=== PATIENT | male | born 1990 | race Caucasian/White ===

== ENCOUNTER 2020-07-18 12:46 | Inpatient (IN) | payer OTHER ==
[2020-07-18 18:47] VITALS: BMI 20.2
[2020-07-18] MEDS ORDERED: MAGNESIUM CITRATE 300 ML BOTTLE PO PRN (19:50)
[2020-07-18] MEDS ORDERED: ACETAMINOPHEN 325 MG TABLET (FP) PO PRN (19:50)
[2020-07-18] MEDS ORDERED: BISMUTH SUBSALICYLATE 524 MG/30 ML UD PO PRN (19:50)
[2020-07-18] MEDS ORDERED: MAG HYDROX/AL HYDROX/SIMETH 30 ML UNIT-DOSE CUP PO PRN (19:50)
[2020-07-18] MEDS ORDERED: IBUPROFEN 400 MG TABLET (FP) PO PRN (19:50)
[2020-07-18] MEDS ORDERED: ONDANSETRON *ODT* 4 MG TABLET SL PRN (19:50)
[2020-07-18] MEDS ORDERED: MENTHOL/PHENOL 1 EACH UD MM PRN (19:50)
[2020-07-18] MEDS ORDERED: MAGNESIUM HYDROX 2400MG/30ML ORAL SUSPENSION 30 ML CUP PO PRN (19:50)
[2020-07-18] MEDS ORDERED: TUBERCULIN PPD 5 TU/0.1ML VIAL ID ONE (21:56)
[2020-07-18] MEDS: MELATONIN 5 MG TABLETS PO SCH (21:59)
[2020-07-18] MEDS: METHOCARBAMOL 500 MG TABLET PO PRN (21:59)
[2020-07-18] MEDS: THIAMINE HCL 100 MG TABLET (FP) PO SCH (21:59)
[2020-07-18] MEDS: BACITRACIN 0.9 GM PACKET TP SCH (22:00)
[2020-07-19 10:21] LABS: CALCIUM 8.9 mg/dL (8.5-10.1)
[2020-07-19 10:22] LABS: ALBUMIN 3.8 g/dl (3.4-5.0)
[2020-07-19 10:26] LABS: BILIRUBIN,TOTAL 0.6 mg/dL (0.2-1); TOT PROT 6.9 g/dl (6.4-8.2)
[2020-07-19 10:35] LABS: HEMATOCRIT 43.9 % (35.4-49); MCH 27.4 pg (25.7-33.7); MCHC 31.9 g/dl (32.0-35.9); MEAN CELL VOLUME 85.9 fl (80-96); MEAN PLT VOLUME 7.9 fl (7.5-11.1); PLATELET COUNT 169 K/MM3 (134-434); RBC 5.12 M/mm3 (4.00-5.60); RDW 16.1 % (11.9-15.9); WHITE BLOOD COUNT 5.7 K/mm3 (4.0-10.0)
[2020-07-19] MEDS: BACITRACIN 0.9 GM PACKET TP SCH ×2 (10:35→21:17)
[2020-07-19] MEDS: PRENATAL VITAMINS W/ FOLIC ACID TABLET (FP) PO SCH (10:35)
[2020-07-19] MEDS: THIAMINE HCL 100 MG TABLET (FP) PO SCH (21:17)
[2020-07-19] MEDS: MELATONIN 5 MG TABLETS PO SCH (21:17)
[2020-07-20] MEDS: METHOCARBAMOL 500 MG TABLET PO PRN ×2 (06:30→21:50)
[2020-07-20] MEDS: PRENATAL VITAMINS W/ FOLIC ACID TABLET (FP) PO SCH (10:15)
[2020-07-20] MEDS: BACITRACIN 0.9 GM PACKET TP SCH ×2 (10:16→22:23)
[2020-07-20 17:53] LABS: PH,URINE 7.5 (5.0-8.0); URINE APPEARANCE CLEAR; URINE BILIRUBIN NEGATIVE (NEGATIVE); URINE COLOR YELLOW; URINE GLUCOSE (UA) NEGATIVE (NEGATIVE); URINE KETONE NEGATIVE (NEGATIVE); URINE LEUK ESTERASE NEGATIVE (NEGATIVE); URINE NITRITE NEGATIVE (NEGATIVE); URINE PROTEIN NEGATIVE (NEGATIVE); URINE UROBILINOGEN 0.2 mg/dL (0.2-1.0)
[2020-07-20] MEDS: MELATONIN 5 MG TABLETS PO PRN (21:50)
[2020-07-20] MEDS: THIAMINE HCL 100 MG TABLET (FP) PO SCH (21:51)
[2020-07-20] MEDS: MELATONIN 5 MG TABLETS PO SCH (22:23)
[2020-07-21] MEDS: NICOTINE POLACRILEX 2 MG GUM BUC PRN (06:36)
[2020-07-21] MEDS: PRENATAL VITAMINS W/ FOLIC ACID TABLET (FP) PO SCH (09:42)
[2020-07-21] MEDS: BACITRACIN 0.9 GM PACKET TP SCH ×2 (09:42→21:08)
[2020-07-21] MEDS: MELATONIN 5 MG TABLETS PO SCH (21:07)
[2020-07-21] MEDS: THIAMINE HCL 100 MG TABLET (FP) PO SCH (21:08)
[2020-07-22] MEDS: ACETAMINOPHEN 325 MG TABLET (FP) PO PRN (06:40)
[2020-07-22] MEDS: PRENATAL VITAMINS W/ FOLIC ACID TABLET (FP) PO SCH (10:20)
[2020-07-22] MEDS: BACITRACIN 0.9 GM PACKET TP SCH ×2 (10:20→21:53)
[2020-07-22] MEDS: METHOCARBAMOL 500 MG TABLET PO PRN (21:40)
[2020-07-22] MEDS: THIAMINE HCL 100 MG TABLET (FP) PO SCH (21:40)
[2020-07-22] MEDS: MELATONIN 5 MG TABLETS PO PRN (21:41)
[2020-07-22] MEDS: MELATONIN 5 MG TABLETS PO SCH (21:42)
[2020-07-23] MEDS: PRENATAL VITAMINS W/ FOLIC ACID TABLET (FP) PO SCH (10:40)
[2020-07-23] MEDS: BACITRACIN 0.9 GM PACKET TP SCH ×2 (10:41→23:54)
[2020-07-23] MEDS: ACETAMINOPHEN 325 MG TABLET (FP) PO PRN (18:55)
[2020-07-23] MEDS: THIAMINE HCL 100 MG TABLET (FP) PO SCH (23:55)
[2020-07-23] MEDS: MELATONIN 5 MG TABLETS PO SCH (23:55)
[2020-07-24] MEDS: BACITRACIN 0.9 GM PACKET TP SCH ×2 (10:23→21:48)
[2020-07-24] MEDS: PRENATAL VITAMINS W/ FOLIC ACID TABLET (FP) PO SCH (10:23)
[2020-07-24] MEDS: MELATONIN 5 MG TABLETS PO PRN (21:48)
[2020-07-24] MEDS: THIAMINE HCL 100 MG TABLET (FP) PO SCH (21:48)
[2020-07-24] MEDS: MELATONIN 5 MG TABLETS PO SCH (21:48)
[2020-07-25] MEDS: PRENATAL VITAMINS W/ FOLIC ACID TABLET (FP) PO SCH (10:24)
[2020-07-25] MEDS: BACITRACIN 0.9 GM PACKET TP SCH (10:24)
[2020-07-25] MEDS: MELATONIN 5 MG TABLETS PO PRN (21:20)
[2020-07-25] MEDS: THIAMINE HCL 100 MG TABLET (FP) PO SCH (21:21)
[2020-07-26] MEDS: PRENATAL VITAMINS W/ FOLIC ACID TABLET (FP) PO SCH (09:54)
[2020-07-26] MEDS: THIAMINE HCL 100 MG TABLET (FP) PO SCH (22:29)
[2020-07-27] MEDS: NICOTINE POLACRILEX 2 MG GUM BUC PRN (06:31)
[2020-07-27] MEDS: PRENATAL VITAMINS W/ FOLIC ACID TABLET (FP) PO SCH (09:58)
[2020-07-27] MEDS: MELATONIN 5 MG TABLETS PO PRN (21:15)
[2020-07-27] MEDS: THIAMINE HCL 100 MG TABLET (FP) PO SCH (21:16)
[2020-07-28 06:14] VITALS: BP 126/80; PULSE 75; TEMP 97.8
[2020-07-28] MEDS: PRENATAL VITAMINS W/ FOLIC ACID TABLET (FP) PO SCH (10:05)
[2020-07-29] MEDS ORDERED: ARIPIPRAZOLE (ABILIFY MAINTENA) 400 MG DISPENSE SYRINGE IM ONE ×2 (10:00)
== END 2020-07-28 20:40 | DRG 772 ==
LOC: YASAS 12:46 → Y3N 20:01 → Y5N 20:19
PROVIDERS: ADMIT Allergy & Immunology; ATTEND Allergy & Immunology
PROC: HZ42ZZZ Group Counseling for Substance Abuse Treatment, Cognitive-Behavioral (ICD-10-PCS; principal; 2020-07-18)
DX: F10.20 Alcohol dependence, uncomplicated (principal); F12.20 Cannabis dependence, uncomplicated; F17.210 Nicotine dependence, cigarettes, uncomplicated; F25.9 Schizoaffective disorder, unspecified; F31.9 Bipolar disorder, unspecified; F19.282 Other psychoactive substance dependence with psychoactive substance-induced sleep disorder; F90.9 Attention-deficit hyperactivity disorder, unspecified type; M25.562 Pain in left knee; W01.0XXA Fall on same level from slipping, tripping and stumbling without subsequent striking against object, initial encounter; Z91.81 History of falling; Y93.89 Activity, other specified; Y92.238 Other place in hospital as the place of occurrence of the external cause; Y99.8 Other external cause status; Z62.810 Personal history of physical and sexual abuse in childhood; Z91.410 Personal history of adult physical and sexual abuse
CPT/HCPCS: 36415; 80053; 81003; 85027; 86780; 93005; 93010; C9803; U0003